=== PATIENT | male | born 1980 | race Caucasian/White ===

== ENCOUNTER 2017-08-14 18:30 | Emergency (ER) | payer OTHER ==
[~2017-08-14] VITALS: Ht 177.8 cm; Wt 76.1 kg
[2017-08-14 18:36] VITALS: BP 143/85; PULSE 70; TEMP 36.7; O2SAT 100; Ht 177.8 cm; Wt 76.1 kg
[2017-08-14] MEDS ORDERED: IBUP-1451 PO (19:18)
--- NOTE | 2017-08-14 19:30 | DIAGNOSTIC IMAGING REPORT ---
RIGHT HEEL 2 VIEWS HISTORY: right heel pain COMPARISON: None. FINDINGS: There is no fracture or dislocation. Soft tissues are unremarkable. No radiopaque foreign bodies. Tiny plantar heel spur. IMPRESSION: No fractures. Electronically signed by: Anjel Zhou M.D. 08/14/2017 7:29 PM Dictated Date/Time: 08/14/2017 7:28 PM
--- NOTE | 2017-08-14 19:33 | EMERGENCY ROOM VISIT NOTE ---
ED Visit Note First contact with patient: 18:41 CHIEF COMPLAINT: right heel pain HISTORY OF PRESENT ILLNESS: This 37-year-old male patient presents to the emergency department, ambulatory, complaining of swelling and pain in the heel of the right foot at rest and worse with weight bearing. The patient states he was working at the [employer], when he was wheeling a hot boxed behind him. The patient states this hot box was approximately 400 pounds, and full of food. The patient states he caught his right heel on the box, and has been experiencing significant pain ever since. The patient states he has been having difficulty walking due to the pain.. The patient rates the pain as throbbing and sharp and 8/10 with pressure. The patient has not had relief of the pain, despite taking 1600 mg of ibuprofen all at once. The patient is able to walk. No numbness or weakness. No ankle pain. There are no lacerations of the foot. The patient is able to move all of their toes and their ankle without pain. No previous fracture to this foot. REVIEW OF SYSTEMS: GENERAL: A 6 system review of systems was completed with positives and pertinent negatives in the HPI. ALLERGIES: None MEDICATIONS: None PMH: None SOCIAL HISTORY: Lives locally with family. He does admit to using marijuana and alcohol. The patient denies tobacco use. PHYSICAL EXAM: Vital Signs: Reviewed Nurse's notes, vital signs stable. GENERAL : This is a 37-year-old male, in no acute distress, but appears in pain, well- developed, well-nourished. MUSCULOSKELATAL: There is no visual deformity of the right foot. There is no erythema or ecchymosis. There is no warmth. There is tenderness and swelling over the heel of the right foot. There is no tenderness over the lateral or medial malleolus. No tenderness of the tib/fib. The range of motion of the right ankle is very mildly limited secondary to pain. There is no tenderness over the plantar fascia. RADIOLOGY: X-Ray Right Heel: RIGHT HEEL 2 VIEWS HISTORY: right heel pain COMPARISON: None. FINDINGS: There is no fracture or dislocation. Soft tissues are unremarkable. No radiopaque foreign bodies. Tiny plantar heel spur. IMPRESSION: No fractures. EMERGENCY DEPARTMENT COURSE: I examined the patient. An X-ray of the right heel was reviewed by myself and radiologist and reveals a tiny plantar heel spur, but no acute fracture or dislocation. The patient was provided with crutches and encouraged to avoid weightbearing as much as possible. Apparently, after I discussed discharge instructions with the patient, nursing staff did go in to give the patient has crutches. The patient apparently asked for a gel splint, and nursing gave him the splint and discharged the patient. The nurse did ask for a order for the gel ankle splint after the patient was discharged and had left the emergency department. The patient was discharged home in good condition. I attest that I have personally reviewed the patient's current medication list. Patient was found to have normal blood pressure on screening and does not require follow-up. DIAGNOSIS right Heel contusion TREATMENT: ORTHOPEDIC INSTRUCTIONS: Ibuprofen(Motrin, Advil) may be used for fever or pain. Use 600mg every six hours as needed. Take with food. Avoid using more than 2400mg in a 24 hour period. Do not use 2400mg per day for more than three consecutive days without physician direction. Prolonged inappropriate use can lead to stomach upset or ulcers. (AND/OR) Acetaminophen(Tylenol) may be used for fever or pain. Use 1000mg every six hours as needed. Avoid using more than 3000mg in a 24 hour period. *You may alternate these medications every 3-4 hours, without exceeding the recommended daily dosages. Ice compresses for 20 minutes at a time four times daily for 2-3 days. Use the crutches as instructed to avoid weight-bearing until it becomes tolerable. Rest and elevate your injury. Return to the ER immediately for any numbness, tingling, severe pain, extreme swelling in the extremity or as needed. Call [facility], [phone], if no improvement in 1 week, to arrange follow up for your injury. Follow-up with your primary care physician in 2 to 3 days for a recheck of your current condition. Problem List Surgical Problems: (1) S/P T&A (status post tonsillectomy and adenoidectomy) Status: Resolved Current/Historical Medications Scheduled PRN Ibuprofen Tab (Motrin), 800 MG PO Q8H PRN for Pain Allergies Coded Allergies: No Known Allergies (Unverified , 05/31/15) Vital Signs Date Time Temp Pulse Resp B/P (MAP) Pulse Ox O2 Delivery O2 Flow Rate FiO2 08/14/17 18:36 36.7 70 20 143/85 100 Room Air Departure Information Impression Primary Impression: Contusion of right heel Dispostion Home / Self-Care Condition GOOD Referrals No Doctor, Assigned (PCP) Forms HOME CARE DOCUMENTATION FORM, IMPORTANT VISIT INFORMATION Patient Instructions ED Contusion Foot, My [facility] Additional Instructions ORTHOPEDIC INSTRUCTIONS: Ibuprofen(Motrin, Advil) may be used for fever or pain. Use 600mg every six hours as needed. Take with food. Avoid using more than 2400mg in a 24 hour period. Do not use 2400mg per day for more than three consecutive days without physician direction. Prolonged inappropriate use can lead to stomach upset or ulcers. (AND/OR) Acetaminophen(Tylenol) may be used for fever or pain. Use 1000mg every six hours as needed. Avoid using more than 3000mg in a 24 hour period. *You may alternate these medications every 3-4 hours, without exceeding the recommended daily dosages. Ice compresses for 20 minutes at a time four times daily for 2-3 days. Use the crutches as instructed to avoid weight-bearing until it becomes tolerable. Rest and elevate your injury. Return to the ER immediately for any numbness, tingling, severe pain, extreme swelling in the extremity or as needed. Call [facility], [phone], if no improvement in 1 week, to arrange follow up for your injury. Follow-up with your primary care physician in 2 to 3 days for a recheck of your current condition. Work Instructions Return To Work: 2 days Problem Qualifiers Primary Impression: Contusion of right heel Encounter type: initial encounter Qualified Codes: S90.31XA - Contusion of right foot, initial encounter
== END 2017-08-14 19:57 | disposition home or self-care (01) ==
LOC: C.EDB 18:31 → C.EDD 19:57
DX: S90.31XA Contusion of right foot, initial encounter (principal); X58.XXXA Exposure to other specified factors, initial encounter; Y92.89 Other specified places as the place of occurrence of the external cause; Y99.0 Civilian activity done for income or pay; Z98.890 Other specified postprocedural states